=== PATIENT | female | born 2000 | race Asian ===

== ENCOUNTER 2022-01-25 15:37 | Inpatient (IN) | payer OTHER ==
[~2022-01-25] VITALS: Ht 160 cm; Wt 64.8 kg
[2022-01-25] MEDS ORDERED: BCP PO (15:59)
[2022-01-25 17:14] LABS: MEAN CORPUSCULAR HGB CONC 33.3 g/dl (32.0-36.5); MEAN CORPUSCULAR VOLUME 92.9 fl (80.0-96.0); PLATELET COUNT, AUTOMATED 173 10^3/uL (150-450); WHITE BLOOD COUNT 6.2 10^3/uL (4.0-10.0)
[2022-01-25 17:31] LABS: HCG, SERUM QUALITATIVE NEGATIVE (NEGATIVE)
[2022-01-25 17:34] LABS: ALBUMIN 3.3 GM/DL (3.2-5.2); ALT/SGPT 18 U/L (12-78); BILIRUBIN,DIRECT < 0.1 MG/DL (0.0-0.2); BILIRUBIN,TOTAL 0.4 MG/DL (0.2-1.0); BLOOD UREA NITROGEN 8 MG/DL (7-18); CALCIUM LEVEL 8.6 MG/DL (8.5-10.1); CARBON DIOXIDE LEVEL 22 MEQ/L (21-32); CHLORIDE LEVEL 110 MEQ/L (98-107); CREATININE FOR GFR 0.62 MG/DL (0.55-1.30); ETHYL ALCOHOL (ETHANOL) < 0.003 % (0.000-0.010); GLOMERULAR FILTRATION RATE > 60.0 (>60); GLUCOSE, FASTING 78 MG/DL (70-100); POTASSIUM SERUM 3.9 MEQ/L (3.5-5.1); SALICYLATE LEVEL < 1.7 MG/DL (5.0-30.0); SODIUM LEVEL 140 MEQ/L (136-145); TOTAL PROTEIN 7.3 GM/DL (6.4-8.2)
[2022-01-25 17:38] LABS: AMPHETAMINES LEVEL URINE NEGATIVE (NEGATIVE); BARBITURATES URINE NEGATIVE (NEGATIVE); BENZODIAZEPINES URINE NEGATIVE (NEGATIVE); CANNABINOIDS URINE NEGATIVE (NEGATIVE); COCAINE METABOLITE URINE NEGATIVE (NEGATIVE); METHADONE URINE NEGATIVE (NEGATIVE); OPIATES URINE NEGATIVE (NEGATIVE); PHENCYCLIDINE URINE NEGATIVE (NEGATIVE)
[2022-01-25 17:40] LABS: RSV AMPLIFICATION NEGATIVE (NEGATIVE)
[2022-01-25 19:22] LABS: ACETAMINOPHEN LEVEL < 2.0 UG/ML (0.0-30.0)
[2022-01-26] MEDS ORDERED: MOM 30ML SUSPENSION UDC PO PRN (00:25)
[2022-01-26] MEDS ORDERED: ACETAMINOPHEN TAB 650MG DOSE (2X325MG) PO PRN (00:25)
[2022-01-26] MEDS ORDERED: MAALOX 30 ML SUSP *UDC PO PRN (00:25)
[2022-01-26] MEDS ORDERED: OLANZapine ORAL DISINTEGRATING TAB 5MG PO PRN (00:25)
[2022-01-26 01:25] VITALS: BP 101/55
[2022-01-26] MEDS ORDERED: HOME MED LIST COMPLETE! XX SCH (08:40)
[2022-01-26] MEDS ORDERED: NORG0.25 PO (08:40)
[2022-01-26] MEDS: VENLAFAXINE **XR** 37.5 MG CAPSULE PO SCH (12:58)
[2022-01-26 18:19] VITALS: BP 103/59
[2022-01-27 06:31] VITALS: BP 109/58
[2022-01-27] MEDS: VENLAFAXINE **XR** 37.5 MG CAPSULE PO SCH (09:27)
[2022-01-27 18:00] VITALS: BP 134/71
[2022-01-28 07:18] VITALS: BP 107/62
[2022-01-28] MEDS: VENLAFAXINE **XR** 37.5 MG CAPSULE PO SCH (09:37)
[2022-01-28 18:21] VITALS: BP 120/64
[2022-01-29 06:00] VITALS: BP 110/63
[2022-01-29] MEDS: VENLAFAXINE **XR** 37.5 MG CAPSULE PO SCH (09:02)
[2022-01-29 15:43] VITALS: BP 129/76
[2022-01-30 07:00] VITALS: BP 112/60
[2022-01-30] MEDS: VENLAFAXINE **XR** 37.5 MG CAPSULE PO SCH (09:18)
[2022-01-30 18:39] VITALS: BP 123/82
[2022-01-31 06:55] VITALS: BP 111/57
[2022-01-31] MEDS: VENLAFAXINE **XR** 37.5 MG CAPSULE PO SCH (09:00)
[2022-01-31] MEDS ORDERED: VENL37.598 PO (10:21)
== END 2022-01-31 13:55 | disposition home or self-care (01) | DRG 881 ==
LOC: M ED 15:37 → M ED INP 01-26 00:21 → M PSY 01-26 02:53
PROVIDERS: ADMIT Psychiatry & Neurology Psychiatry; ATTEND Psychiatry & Neurology Psychiatry
DX: F32.A Depression, unspecified (principal); R45.851 Suicidal ideations; F32.9 Major depressive disorder, single episode, unspecified